=== PATIENT | female | born 1975 | race Caucasian/White ===

== ENCOUNTER → 2024-06-02 10:25 | Outpatient (REF) | payer OTHER, SELFPAY ==
[2024-06-02 12:12] LABS: % Basophils 1.1 % (0-2); % Eosinophils 0.6 % (0-6); % Immature Granulocytes 1.1 % (0-0.5); % Lymphocytes 30.3 % (20.5-51.1); % Monocytes 11.2 % (1.7-9.3); % Neutrophils 55.7 % (42.2-75.2); Absolute Basophils 0.1 10^3/uL (0-0.2); Absolute Immature Granulocytes 0.1 10^3/uL (0-0.05); Absolute Lymphocytes 1.6 10^3/uL (1.2-3.4); Absolute Monocytes 0.6 10^3/uL (0.1-0.6); Hematocrit 38.2 % (37.0-47.0); Hemoglobin 12.7 g/dL (12.0-16.0); Mean Corp Hgb Conc. 33.2 g/dL (33.0-37.0); Mean Corpuscular Hgb 27.9 pg (27.0-31.0); Mean Platelet Volume 10.4 fL (7.4-10.4); Nucleated Red Blood Cells % 0 %; Platelet Count 270 10^3/uL (130-400); Red Blood Cell Count 4.55 10^6/uL (4.20-5.40); Red Cell Dist. Width 13.5 % (11.5-14.5); White Blood Cell Count 5.3 10^3/uL (4.8-10.8)
[2024-06-02 12:45] LABS: ALT (SGPT) 16 U/L (0-35); AST (SGOT) 21 U/L (14-36); Albumin 4.6 g/dl (3.5-5.0); Alkaline Phosphatase 43 U/L (38-126); Blood Urea Nitrogen 14 mg/dl (7-17); Calcium 9.7 mg/dl (8.4-10.2); Carbon Dioxide 24 mmol/L (22-30); Chloride 103 mmol/L (98-107); Glucose 95 mg/dl (70-99); Potassium 4.5 mmol/L (3.5-5.1); Sodium 138 mmol/L (135-145); Total Bilirubin 0.5 mg/dl (0.2-1.3); Total Protein 7.3 g/dl (6.3-8.2); eGFR > 60.00
[2024-06-02 13:02] LABS: Vitamin D, 25-OH*** 54.2 ng/mL (30-80)
[2024-06-02 13:16] LABS: TSH Reflex To Free T4 2.67 uIU/ml (0.47-4.68)
[2024-06-02 13:20] LABS: Ferritin 5.2 ng/ml (6.24-137)
== END ==
LOC: HWLAB 10:25
PROVIDERS: ATTENDING PHYSICIAN Physical Medicine & Rehabilitation; FAMILY PHYSICIAN Nurse Practitioner Family
DX: R00.2 Palpitations (principal); E06.3 Autoimmune thyroiditis; R00.0 Tachycardia, unspecified; K29.70 Gastritis, unspecified, without bleeding; H10.9 Unspecified conjunctivitis; R05.9 Cough, unspecified
CPT/HCPCS: 36415; 80053; 82306; 82728; 84443; 84480; 85025

== ENCOUNTER → 2024-12-29 09:17 | Outpatient (REF) | payer OTHER, SELFPAY | LOC: HWWDC 09:17 | PROVIDERS: ATTENDING PHYSICIAN Internal Medicine; REFERRING PHYSICIAN Obstetrics & Gynecology | DX: Z12.31 Encounter for screening mammogram for malignant neoplasm of breast (principal) | CPT/HCPCS: 77063; 77067 ==

== ENCOUNTER → 2025-01-09 08:45 | Outpatient (REF) | payer OTHER, SELFPAY ==
[2025-01-09 13:44] LABS: Free T4 1.06 ng/dl (0.78-2.19); Vitamin D, 25-OH*** 42.1 ng/mL (30-80)
[2025-01-09 13:59] LABS: TSH 2.46 uIU/ml (0.47-4.68)
[2025-01-09 14:01] LABS: Ferritin 5.1 ng/ml (6.24-137)
[2025-01-11 15:51] LABS: Total T3 (Sendout) 120 ng/dL (80-200)
== END ==
LOC: HWLAB 08:45
PROVIDERS: ATTENDING PHYSICIAN Physical Medicine & Rehabilitation; FAMILY PHYSICIAN Internal Medicine
DX: E55.9 Vitamin D deficiency, unspecified (principal); E61.1 Iron deficiency; E07.81 Sick-euthyroid syndrome; E06.3 Autoimmune thyroiditis
CPT/HCPCS: 36415; 82306; 82728; 84439; 84443; 84480

== ENCOUNTER → 2025-02-02 11:20 | Outpatient (REF) | payer OTHER, SELFPAY ==
[2025-02-02 15:49] LABS: Urine Character Clear (Clear)
[2025-02-02 15:58] LABS: Hematocrit 40.3 % (37.0-47.0); Hemoglobin 13.1 g/dL (12.0-16.0); Mean Corp Hgb Conc. 32.5 g/dL (33.0-37.0); Mean Corpuscular Volume 83.3 fL (81.0-99.0); Nucleated Red Blood Cells % 0 %; Platelet Count 291 10^3/uL (130-400); Red Cell Dist. Width 13.7 % (11.5-14.5)
[2025-02-02 16:03] LABS: ALT (SGPT) 13 U/L (0-35); AST (SGOT) 18 U/L (14-36); Albumin 4.7 g/dl (3.5-5.0); Alkaline Phosphatase 39 U/L (38-126); Blood Urea Nitrogen 10 mg/dl (7-17); Calcium 9.5 mg/dl (8.4-10.2); Carbon Dioxide 25 mmol/L (22-30); Chloride 106 mmol/L (98-107); Glucose 91 mg/dl (70-99); HDL Cholesterol 64 mg/dl; LDL Cholesterol, Calculated 105 mg/dl; Potassium 4.8 mmol/L (3.5-5.1); Sodium 137 mmol/L (135-145); Total Protein 7.5 g/dl (6.3-8.2); Very Low Density Lipoprotein 21 mg/dl (0-30); eGFR > 60.00
[2025-02-02 16:19] LABS: Vitamin D, 25-OH*** 44.3 ng/mL (30-80)
[2025-02-02 16:55] LABS: Hepatitis C Antibody Negative (Negative)
[2025-02-03 08:51] LABS: Glycohemoglobin (HgbA1c) 5.3 % (4.0-5.6)
== END ==
LOC: HWLAB 11:20
PROVIDERS: ATTENDING PHYSICIAN Internal Medicine
DX: Z00.00 Encounter for general adult medical examination without abnormal findings (principal); Z11.59 Encounter for screening for other viral diseases
CPT/HCPCS: 36415; 80053; 80061; 81003; 82306; 83036; 84443; 85025; 86803